=== PATIENT | male | born 1945 | race Caucasian/White ===

== ENCOUNTER 2019-06-14 12:29 | Outpatient (REF) | payer MEDICARE, OTHER, SELFPAY ==
[2019-06-14 21:36] LABS: HCT 46.5 % (40.0-50.0); HGB 15.5 g/dL (13.5-17.5); Mean Corp. HGB Concentration 33.3 g/dL (32.0-36.0); Mean Corpuscular Hemoglobin 30.9 pg (27.0-33.0); Mean Corpuscular Volume 92.8 fL (80-95); Mean Platelet Volume 10.6 fL (8.0-11.0); Platelet Count 210 x1000/uL (130-400); RBC 5.01 m/cumm (4.50-6.00); RBC Distribution Width 14.7 % (11.8-14.1)
[2019-06-14 21:53] LABS: ALT 28 U/L (16-63); AST 16 U/L (15-37); Albumin 3.9 g/dL (3.4-5.0); Alkaline Phosphatase 124 U/L (46-116); Anion Gap 10.2 mmol/L (3-11); BUN 25 mg/dL (7-18); Bilirubin, Total 0.5 mg/dL (0.2-1.0); CO2 23.8 mmol/L (21.0-32.0); Calcium 8.7 mg/dL (8.5-10.1); Chloride 108 mmol/L (98-107); Ferritin 28 ng/mL (8-388); Glucose 116 mg/dL (70-100); Potassium 4.1 mmol/L (3.5-5.1); Sodium 142 mmol/L (136-145); Total Protein 7.3 g/dL (6.4-8.2)
== END 2019-06-14 12:49 ==
LOC: NCHCN 12:29
PROVIDERS: PCP Family Medicine; Visit Provider Registered Nurse
DX: E83.119 Hemochromatosis, unspecified (principal); I10 Essential (primary) hypertension; R35.0 Frequency of micturition
CPT/HCPCS: 80053; 85027; 82728

== ENCOUNTER 2020-05-16 15:49 | Outpatient (REF) | payer MEDICARE, OTHER, SELFPAY ==
[2020-05-16 21:13] LABS: HGB 15.2 g/dL (13.5-17.5); MCH 30.8 pg (27.0-33.0); MCV 93.3 fL (80-95); MPV 10.4 fL (8.0-11.0); Platelet Count 201 10^3/uL (130-400); RBC 4.93 10^6/uL (4.36-5.78); RDW 13.6 % (11.8-14.1); RDW-SD 46.8 fL; WBC 8.78 10^3/uL (4.4-10.8)
[2020-05-16 21:46] LABS: BUN 18 mg/dL (7-18); Calcium 8.4 mg/dL (8.5-10.1); Chloride 107 mmol/L (98-107); Estimated GFR 54.11 (mL/min/1.73m2); Ferritin 80 ng/mL (26-388); Glucose 111 mg/dL (74-106); Potassium 3.9 mmol/L (3.5-5.1); Sodium 140 mmol/L (136-145)
== END 2020-05-16 16:09 ==
LOC: NCHCN 15:49
PROVIDERS: PCP Family Medicine; Visit Provider Registered Nurse
DX: I10 Essential (primary) hypertension (principal); E83.119 Hemochromatosis, unspecified
CPT/HCPCS: 80048; 85027; 82728

== ENCOUNTER 2020-12-01 10:09 | Outpatient (REF) | payer MEDICARE, OTHER, SELFPAY ==
[2020-12-01 13:31] LABS: HCT 46.8 % (40.0-50.0); HGB 15.7 g/dL (13.5-17.5); MCH 31.8 pg (27.0-33.0); MCHC 33.5 % (32.0-36.0); MCV 94.7 fL (80-95); MPV 10.2 fL (8.0-11.0); Platelet Count 201 10^3/uL (130-400); RBC 4.94 10^6/uL (4.36-5.78); RDW 13.2 % (11.8-14.1); RDW-SD 46.8 fL; WBC 8.15 10^3/uL (4.4-10.8)
[2020-12-01 13:57] LABS: BUN 21 mg/dL (7-18); Calcium 8.8 mg/dL (8.5-10.1); Chloride 108 mmol/L (98-107); Ferritin 104 ng/mL (26-388); Glucose 141 mg/dL (74-106); Sodium 141 mmol/L (136-145)
== END 2020-12-01 10:10 | disposition home or self-care (01) ==
LOC: NCHCN 10:09
PROVIDERS: PCP Registered Nurse; Visit Provider Registered Nurse
DX: E83.119 Hemochromatosis, unspecified (principal)
CPT/HCPCS: 80048; 85027; 82728